=== PATIENT | female | born 2000 | race Caucasian/White ===

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

== ENCOUNTER 2022-07-22 04:31 | Emergency (ER) | payer MEDICAID, SELFPAY ==
[2022-07-22 04:33] VITALS: BP 130/76; PULSE 77; RESP 17; TEMP 36.5; O2SAT 100; BMI 30.5
[2022-07-22] MEDS: Azithromycin 250 MG Tablet 1000 MG PO (05:13)
[2022-07-22] MEDS: Ceftriaxone 500 MG Vial IM (05:25)
--- NOTE | 2022-07-22 05:51 | EDS_ITS ---
HPI HPI - Female History of Present Illness Chief Complaint: Female C/O Narrative Narrative: Patient is a 21-year-old female with past medical history of migraine and previous chlamydia. She states she engaged in sexual activity the other day and then noticed vaginal itching. She states discomfort/itching is localized to the vagina and not the surrounding tissues and that it feels like it is only along the external surface. She denies any discharge and she states she has an IUD and therefore has no concern for . She states does not feel the same as her previous diagnosis of chlamydia but had concern for that and therefore comes in for evaluation. PFSH PFSH Home Medications valacyclovir 1 gram tablet (Valtrex) 1,000 mg PO BID 10 days #20 tabs 07/22/22 [Rx Last Taken Unknown] Allergy/AdvReac Type Severity Reaction Status Date / Time No Known Allergies Allergy Verified 07/22/22 04:32 Social History (System 06/24/19 @ 12:19 by Adrienne Rivera) Smoking Status: Never smoker ROS ROS ED Constitutional Constitutional ED: Denies chills or fever(s) ENT ENT ED: Denies sore throat Cardiovascular Cardiovascular: Denies chest pain Respiratory/Chest Respiratory/Chest: Denies cough or dyspnea Gastrointestinal Gastrointestinal: Denies abdominal pain, diarrhea, nausea or vomiting Genitourinary Genitourinary ED: Reports other Details: Positive vaginal itching ; Denies dysuria Musculoskeletal Musculoskeletal: Denies myalgias Integumentary Denies rash Neurologic Neurologic: Denies headache(s) Hematologic/Lymphatic Hematologic/Lymphatic: Denies easy bleeding or easy bruising EXAM Physical Exam Const Vital Signs: 07/22/22 04:33 07/22/22 05:56 Temperature 97.7 F L 98.1 F Temperature Source Temporal Pulse Rate 77 76 Respiratory Rate 17 17 Blood Pressure 130/76 H 132/74 H Blood Pressure Mean 94 Pulse Ox 100 99 Oxygen Delivery Method Room Air Positive well nourished and well developed General Appearance ED: well developed Eyes PERRL and EOMs intact bilaterally Neck supple Resp normal respiratory effort and clear to auscultation bilaterally Cardio regular rate and regular rhythm GI non-tender and non-distended Auscultation: normoactive bowel sounds Palpation: soft Narrative: Along the labial tissue bilaterally there are well-circumscribed circular erythematous lesions that appear to have had a vesicular head which is now ruptured most concerning for herpes simplex. No obvious abscess noted no secondary soft tissue changes to suggest Mabel's gangrene. No vaginal discharge present Extremity normal to inspection Neuro oriented x3 and CN's II-XII intact bilaterally Sensorium / Orientation: alert Psych mental status grossly normal Skin no rashes or lesions noted MDM MDM MDM Narrative Medical decision making narrative: Patient presented to the ER in no acute distress with a soft nonsurgical abdomen. She reported vaginal irritation and itching without discharge. On exam there are lesions along the external surface of the labia that are most concerning with herpes. Therefore a viral swab was obtained and patient was started on Valtrex. As patient had concern for possible chlamydia I did elect to send a urine sample to test for this and she also was treated with Rocephin and Zithromax. However at this time vitals are stable and she has no signs of systemic infection or overt concern for PID so do not feel there is need for further work-up and she is otherwise safe for discharge. Discharge Plan Triage Chief Complaint: Female C/O ED Provider: Berto Beltran Dx/Rx/DC Orders Clinical Impression: Screening examination for STD (sexually transmitted disease), Genital herpes Instructions: ED Herpes Genitalis, Hsv: Type Ii Prescriptions: New valacyclovir [Valtrex] 1 gram tablet 1,000 mg PO BID 10 Days Qty: 20 0RF Primary Care Provider: Naman Sandoval Referrals: Naman Sandoval MD [Primary Care Provider] - Activity Restrictions/Additional Instructions: Please follow-up with your STRUCT[employer]INE[facility] for repeat evaluation. Also please refrain from sexual activity for the next 5 to 7 days and return to the ER should you have any further concerns. Disposition Disposition: Home, Self Care
[2022-07-22 05:56] VITALS: BP 132/74; PULSE 76; RESP 17; TEMP 36.7; O2SAT 99
[2022-07-22 06:57] LABS: Chlamydia Trachomatis by PCR Negative (Negative); Neisserai gonorrhoeae by PCR Negative (Negative); Probe Check PASS; Sample Adequacy Control PASS; Specimen Processing Control PASS
== END 2022-07-22 05:50 | disposition home or self-care (01) ==
PROVIDERS: Emergency Provider Emergency Medicine; PCP Pediatrics; Visit Provider Emergency Medicine
DX: A60.00 Herpesviral infection of urogenital system, unspecified (principal); Z11.3 Encounter for screening for infections with a predominantly sexual mode of transmission
CPT/HCPCS: 87255; 87491; 87591; 96372; 99283

== ENCOUNTER 2022-10-09 14:11 | Emergency (ER) | payer MEDICAID, SELFPAY ==
[2022-10-09 14:11] VITALS: BP 126/86; PULSE 90; RESP 16; TEMP 36.6; O2SAT 99; BMI 30.4
--- NOTE | 2022-10-09 15:06 | EX.ED.VIS.UR ---
HPI HPI - URI History of Present Illness Chief Complaint: Cough Narrative Narrative: 22-year-old female presenting with cough, congestion, decreased p.o. appetite, generalized malaise for about a week and a half. She states she was seen at the urgent care previously and had been tested for COVID and influenza and this was negative. She states that her grandmother whom she has been around is also sick. Her grandmother not been tested for anything. Patient denies a history of fever. She states she does not have a appetite but she is not having nausea or vomiting. ROS ROS ED Constitutional Constitutional ED: Reports chills; Denies fever(s) Eyes Eyes: Denies change in vision or diplopia ENT ENT ED: Reports rhinorrhea Cardiovascular Cardiovascular: Denies chest pain Respiratory/Chest Respiratory/Chest: Reports cough Gastrointestinal Gastrointestinal: Denies abdominal pain, nausea or vomiting Genitourinary Genitourinary ED: Denies dysuria or hematuria Musculoskeletal Musculoskeletal: Reports myalgias Integumentary Denies abscess Neurologic Neurologic: Denies headache(s), paresthesias or weakness Psychiatric Psychiatric: Denies anxiety or depression PFSH PFSH Home Medications valacyclovir 1 gram tablet (Valtrex) 1,000 mg PO BID 10 days #20 tabs 07/22/22 [Rx Last Taken Unknown] Allergy/AdvReac Type Severity Reaction Status Date / Time No Known Allergies Allergy Verified 10/09/22 14:11 Social History Smoking Status: Never smoker EXAM Physical Exam Const Vital Signs: 10/09/22 14:11 10/09/22 15:13 Temperature 97.8 F Temperature Source Temporal Pulse Rate 90 Respiratory Rate 16 Respiratory Effort Normal Non-Labored Short of Breath Respiratory Depth Normal Respiratory Pattern Normal Blood Pressure 126/86 H Blood Pressure Mean 99 Pulse Ox 99 Oxygen Delivery Method Room Air Positive well nourished General Appearance ED: NAD; Negative for pallor HEENT Reports moist mucous membranes normocephalic Throat: posterior oropharynx normal Eyes PERRL and EOMs intact bilaterally Neck no lymphadenopathy, supple and no meningeal signs Resp normal respiratory effort and clear to auscultation bilaterally Cardio Rate: regular rate Rhythm: regular rhythm Neuro oriented x3 and CN's II-XII intact bilaterally Sensorium / Orientation: alert Motor Exam: strength 5/5 throughout Psych mental status grossly normal Skin General Skin Exam: Negative for jaundice or pallor MDM MDM MDM Narrative Medical decision making narrative: I did obtain a chest x-ray for the patient and this is negative for acute findings on my interpretation. Radiology interpreted this and agrees. Suspect she likely had a viral syndrome and is still recovering. Her vital signs are normal. She not requiring oxygen. On reevaluation she is requesting Zofran which was provided for her. I will give her a prescription for this for home. She is counseled to hydrate. She should follow-up with her PCP to ensure resolution. Impression: 1. Cough 2. Fatigue 3. Viral syndrome Lab Data Attestation: I reviewed the patient's lab results. Radiography Diagnostic Testing: Clinical Impression(s) from Imaging Studies Chest X-Ray 10/09/22 15:20 IMPRESSION: Normal x-ray examination of the chest. Electronically Signed: Jason Lantigua MD at 15:36 EST , Discharge Plan Triage Chief Complaint: Cough ED Provider: Ketan Rob Dx/Rx/DC Orders Prescriptions: No Action valacyclovir [Valtrex] 1 gram tablet 1,000 mg PO BID 10 Days Qty: 20 0RF Primary Care Provider: Naman Sandoval Referrals: Naman Sandoval MD [Primary Care Provider] -
--- NOTE | 2022-10-09 15:20 | RAD_ITS ---
STUDY: X-RAY CHEST REASON FOR EXAM: Female, 22 years old. Cough and chest congestion. Nausea and vomiting. TECHNIQUE: PA and lateral views of the chest. COMPARISON: Comparison is made with prior study dated 10/15/2020. FINDINGS: The lungs are clear and expanded. There is no demonstrated pleural abnormality. Normal size heart. Normal mediastinum and louie. Normal visualized pulmonary arteries. Normal visualized aortic arch and descending thoracic aorta. Normal visualized thoracic spine. Normal visualized ribs, clavicles, and shoulders. There is no demonstrated abnormality of the visualized soft tissue structures of the upper abdomen. RAD/Chest PA and Lateral IMPRESSION: Normal x-ray examination of the chest. Electronically Signed: Jason Lantigua MD at 15:36 EST ,
== END 2022-10-09 17:06 | disposition home or self-care (01) ==
PROVIDERS: Emergency Provider Student in an Organized Health Care Education/Training Program; PCP Pediatrics; Visit Provider Student in an Organized Health Care Education/Training Program
DX: R05.9 Cough, unspecified (principal); R53.83 Other fatigue; B34.9 Viral infection, unspecified
CPT/HCPCS: 71046; 99282

== ENCOUNTER 2023-04-13 17:21 | Emergency (ER) | payer MEDICAID, SELFPAY ==
[2023-04-13 17:21] VITALS: BP 115/69; PULSE 69; RESP 16; TEMP 36.6; O2SAT 99; BMI 32.8
--- NOTE | 2023-04-13 17:25 | RAD_ITS ---
EXAM: XR RIGHT HAND COMPLETE, 3 OR MORE VIEWS CLINICAL INDICATION: BUMP TO HAND TECHNIQUE: Frontal, lateral and oblique views of the right hand. COMPARISON: 11.08.19 FINDINGS: BONES/JOINTS: Unremarkable. No acute fracture. No subluxation. Normal alignment. Preservation of the joint space. No sclerotic or destructive changes observed. SOFT TISSUES: Unremarkable. No soft tissue swelling or gas. No radiopaque foreign body. RAD/Hand Min 3 Views IMPRESSION: Negative right hand x-rays. Electronically Signed: Baldo Salazar MD at 17:42 EDT ,
--- NOTE | 2023-04-13 18:11 | EDS_ITS ---
HPI History of Present Illness Chief Complaint: Upper Extremity Injury Detail of Chief Complaint: Prominence of bone dorsum of right hand and pain with extension of right in Informant: patient Occured/Mechanism Comment: There is no hip, Onset/Context/Timing Onset: Weeks Context: Sudden Onset Timing: Intermittent Quality of Pain: Dull and Aching Location: Extensor in the site tendon and base of the second metacarpal bone Current Severity: Gone Maximum Severity: Moderate Worsened by: Certain movements and use of right hand Relieved by: Rest Associated Symptoms Associated Symptoms: Negative for Parasthesia, Weakness or Loss of Funtion Narrative Narrative: Patient is a 22-year-old [id number] female who presents with right hand pain with use and a prominent bump. The bump is located over the base of the second metacarpal bone. She complains of numbness over the dorsum of the hand and specifically over the second and third carpal bone. She has no other complaints. There is no history of direct trauma. Tetanus Immunization: 5-10 years Prior similar symptoms: No Recent Illness/Hospitalization: No PFSH PFSH Medical History Allergies Bone fracture Generalized headaches H/O emotional problems MDD (major depressive disorder), recurrent episode, mild PTSD (post-traumatic stress disorder) UTI (urinary tract infection) Home Medications Lactobacillus acidophilus 20 billion cell capsule (Florajen Acidophilus) 20,000 mmu cells PO 04/10/23 [History Last Taken Unknown] bupropion HCl 150 mg 24 hr tablet, extended release (Wellbutrin XL) 150 mg PO QAM #30 tabs 04/10/23 [Rx Last Taken Unknown] cetirizine 10 mg tablet 10 mg PO DAILY 04/10/23 [History Last Taken Unknown] epinephrine 0.3 mg/0.3 mL injection, auto-injector 0.3 mg subcut .prn 04/10/23 [History Last Taken Unknown] levonorgestrel 17.5 mcg/24 hrs (5yrs) 19.5mg intrauterine device (Kyleena) 1 device intrauterine ONCE 04/10/23 [History Last Taken Unknown] loratadine 10 mg tablet 10 mg PO DAILY 04/10/23 [History Last Taken Unknown] naproxen 500 mg tablet 500 mg PO BID #14 tabs 04/13/23 [Rx Last Taken Unknown] Allergy/AdvReac Type Severity Reaction Status Date / Time No Known Allergies Allergy Verified 04/13/23 17:21 Family History Other CVA (cerebral vascular accident) Mental disorder Social History Smoking Status: Never smoker alcohol intake: current details: weekends substance use type: does not use frequency: daily ROS ROS ED Constitutional Constitutional ED: Denies chills, fever(s), subjective, sweats or weight loss Musculoskeletal Musculoskeletal: Reports other Details: Per HPI ; Denies back pain or neck pain Neurologic Neurologic: Reports paresthesias; Denies headache(s) or weakness Hematologic/Lymphatic Hematologic/Lymphatic: Denies easy bleeding or easy bruising EXAM Physical Exam Narrative Exam Narrative: No apparent distress Const Vital Signs: 04/13/23 17:21 Temperature 97.9 F Temperature Source Temporal Pulse Rate 69 Respiratory Rate 16 Blood Pressure 115/69 Blood Pressure Mean 84 Pulse Ox 99 Oxygen Delivery Method Room Air Positive well nourished and well developed General Appearance ED: well developed and NAD; Negative for cyanotic or diaphoretic HEENT Reports moist mucous membranes Negative for normocephalic or atraumatic Eyes Negative for PERRL or EOMs intact bilaterally Neck full ROM and supple Resp normal respiratory effort Cardio regular rate and regular rhythm Extremity normal to inspection and full ROM Extremity Narrative: There is prominence of the base of the second metacarpal. The extensor tendon does go over the prominent area causing her discomfort. There is no grittiness appreciated. The extensor indices and extensor commonest tendon are functionally intact. Median, radial and ulnar function. Capillary refill is normal. Sensation is intact in the digits. Neuro oriented x3, CN's II-XII intact bilaterally, moves all extremities, no focal motor deficits and no sensory deficits noted Sensorium / Orientation: alert Psych mental status grossly normal Skin General Skin Exam: Negative for petechiae Lesions: no lesions Rashes: no rashes Trauma: no lacerations or abrasions MDM MDM MDM Narrative Medical decision making narrative: X-ray was obtained per nurse protocol to assess the prominent area and determine if there is any arthritic changes, fracture or subluxation etc. The three-view x-ray was independently reviewed and interpreted by me as negative. Suspect jose sharma has mild tendinitis. Placed on NSAIDs as there is no contraindication and follow-up with her primary care doctor Dr. Schmitt. If this continues she can be referred to sports medicine or Dr. Sin who does hand surgery for the [facility]. Radiography Chest X-Ray - ED: Read by ED Physician (Three-view x-ray of the hand was independently reviewed interpreted by me as negative.) Diagnostic Testing: Clinical Impression(s) from Imaging Studies Hand X-Ray 04/13/23 17:25 IMPRESSION: Negative right hand x-rays. Electronically Signed: Baldo Salazar MD at 17:42 EDT , Discharge Plan Triage Chief Complaint: Upper Extremity Injury ED Provider: Jared Wall Dx/Rx/DC Orders Clinical Impression: Extensor tendinitis of hand, PTSD (post-traumatic stress disorder) Instructions: ED Tendonitis Prescriptions: New naproxen 500 mg tablet 500 mg PO BID Qty: 14 0RF No Action Florajen Acidophilus 20 billion cell capsule 20,000 mmu cells PO loratadine 10 mg tablet 10 mg PO DAILY Label Comments: take 1 tablet by mouth every morning cetirizine 10 mg tablet 10 mg PO DAILY Label Comments: take 1 tablet by mouth at bedtime epinephrine 0.3 mg/0.3 mL auto-injector 0.3 mg subcut .prn Label Comments: inject 0.3 milliliters ( 0.3 milligrams ) intramuscularly in OUTE... (REFER TO PRESCRIPTION NOTES). Kyleena 17.5 mcg/24 hrs (5 yrs) 19.5 mg intrauterine device 1 device intrauterine ONCE Rx Instructions: as a single dose bupropion HCl [Wellbutrin XL] 150 mg tablet extended release 24 hr 150 mg PO QAM Qty: 30 2RF Primary Care Provider: Roseline Schmtit Referrals: Roseline Schmitt MD [Primary Care Provider] - 3-5 Days if not improving Disposition Disposition: Home, Self Care
== END 2023-04-13 18:23 | disposition home or self-care (01) ==
PROVIDERS: Emergency Provider Emergency Medicine; PCP Internal Medicine; Visit Provider Emergency Medicine
DX: M77.8 Other enthesopathies, not elsewhere classified (principal); M79.641 Pain in right hand; F43.10 Post-traumatic stress disorder, unspecified; Z79.899 Other long term (current) drug therapy
CPT/HCPCS: 73130; 99282